=== PATIENT | female | born 1980 | race Caucasian/White ===

== ENCOUNTER → 2022-05-11 | Outpatient (CLI) | payer OTHER ==
[~2022-05-11] MED LIST: ALDACTONE50 MG; FLOXIN 10 ML10 ML OT; NORCO 325 MG-7.1 TAB PO; SYNTHROID0.1 MG/TAB
[2022-05-11 10:08] LABS: ALBUMIN 3.7 gm/dL (3.5-5.0); BILIRUBIN,TOTAL 0.3 mg/dL (0.2-1.2); CALCIUM 9.3 mg/dL (8.4-10.2); CREATININE, serum 0.84 mg/dL (0.57-1.11); POTASSIUM 4.3 mmol/L (3.5-4.5); TOTAL PROTEIN 7.9 gm/dL (6.2-8.1)
== END ==
LOC: COL.LAB 08:57
DX: E66.01 Morbid (severe) obesity due to excess calories (principal)

== ENCOUNTER 2022-06-05 12:42 | Emergency (ER) | payer OTHER ==
[~2022-06-05] VITALS: Ht 165.1 cm; Wt 132.3 kg
[2022-06-05 13:01] LABS: BASO # 0.1 K/mm3 (0.0-0.2); BASO % 1.5 % (0.0-2.0); EOS # 0.5 K/mm3 (0.0-0.7); EOS % 5.1 % (0.0-4.0); GRAN # 5.5 K/mm3 (1.4-6.5); GRAN % 59.7 % (42.2-75.2); HEMATOCRIT 39.9 % (37.0-47.0); HEMOGLOBIN 12.7 g/dl (12.5-16.0); LYMPH # 2.5 K/mm3 (1.2-3.4); LYMPH % 26.7 % (20.0-51.0); MEAN CELL VOLUME 80 fl (80.0-100.0); MEAN CORPUSCULAR HEMOGLOBIN 26 pg (27-31); MEAN CORPUSCULAR HGB CONC 32 g/dl (33.0-37.0); MEAN PLATELET VOLUME 10.8 fl (7.4-10.4); MONO # 0.6 K/mm3 (0.1-0.6); MONO % 6.7 % (1.7-9.3); PLATELET COUNT 306 K/mm3 (130-400); RED BLOOD COUNT 4.98 M/mm3 (4.10-5.30); REDCELL DISTRIBUTION WIDTH-CV 14.9 % (11.5-14.5)
[2022-06-05 13:08] LABS: INR 1.1 (0.8-3.0)
[2022-06-05 13:11] LABS: PARTIAL THROMBOPLASTIN TIME 33.8 SECONDS (26.0-37.0)
[2022-06-05 13:12] LABS: D-DIMER < 200.00 ng/mLDDu (200-230)
[2022-06-05 13:27] LABS: ALANINE AMINOTRANSFERASE 84 U/L (0-55); ALKALINE PHOSPHATASE 88 U/L (40-150); ANION GAP 9 mmol/L (7-16); AST,SGOT 51 U/L (5-34); BILIRUBIN,TOTAL 0.4 mg/dL (0.2-1.2); BLOOD UREA NITROGEN 11 mg/dL (7-19); C-REACTIVE PROTEIN 1.19 mg/dL (0.00-0.50); CALCIUM 9.1 mg/dL (8.4-10.2); CARBON DIOXIDE 25 mmol/L (22-29); CHLORIDE 107 mmol/L (98-107); CREATININE, serum 0.75 mg/dL (0.57-1.11); GLUCOSE 95 mg/dL (70-99); LIPASE 17 U/L (8-78); POTASSIUM 3.9 mmol/L (3.5-4.5); SODIUM 141 mmol/L (136-145); TOTAL PROTEIN 7.9 gm/dL (6.2-8.1)
[2022-06-05 13:39] LABS: TROPONIN-I < 0.010 ng/mL (0.00-0.033)
[2022-06-05 14:58] VITALS: BP 100/61; PULSE 65; TEMP 98
[2022-06-05] MEDS ORDERED: ZOFRAN ODT4 MG PO (15:05)
== END 2022-06-05 15:07 | disposition home or self-care (01) ==
LOC: COL.ER 12:42
PROVIDERS: Family Medicine
DX: R10.9 Unspecified abdominal pain (principal); E66.9 Obesity, unspecified; Z68.42 Body mass index [BMI] 45.0-49.9, adult; Z98.84 Bariatric surgery status; Z90.49 Acquired absence of other specified parts of digestive tract
CPT/HCPCS: J2270; Q9967